=== PATIENT | male | born 1990 | race Caucasian/White ===

== ENCOUNTER 2016-10-23 17:36 | Emergency (ER) | payer BC, SELFPAY ==
[~2016-10-23] VITALS: Ht 177.8 cm; Wt 69.1 kg
[2016-10-23 17:36] VITALS: BP 122/70
[2016-10-23] MEDS ORDERED: KEFL500C17 PO (19:08)
[2016-10-23] MEDS ORDERED: GENT3OPD OU (19:08)
[2016-10-23] MEDS ORDERED: CEPHALEXIN 500 MG CAP PO ONE (19:15)
[2016-10-23] MEDS ORDERED: GENTAMICIN 0.3% OPHTH SOL 5 ML BTL OU ONE (19:15)
== END 2016-10-23 19:14 | disposition home or self-care (01) ==
LOC: M ED 17:36
DX: L30.9 Dermatitis, unspecified (principal)